=== PATIENT | female | born 1935 | race African-American/Black ===

== ENCOUNTER 2017-08-18 05:32 | Inpatient (IN) | payer BC, OTHER ==
[~2017-08-18] VITALS: Ht 160 cm; Wt 59.9 kg
[2017-08-18 05:52] VITALS: BP 150/70
[2017-08-18 07:30] LABS: BASOPHILS % (AUTO) 1.2 % (0.0-2.0); HEMATOCRIT 40.4 % (37.0-47.0); HEMOGLOBIN 12.7 G/DL (12.0-16.0); LYMPHOCYTES % (AUTO) 8.7 % (20.0-45.0); MEAN CORPUSCULAR VOLUME 85 FL (80-99); MONOCYTES % (AUTO) 11.8 % (1.0-10.0); NEUTROPHILS % (AUTO) 77.2 % (45.0-75.0); PLATELET COUNT 271 K/UL (150-450); RED BLOOD COUNT 4.77 M/UL (4.20-5.40); RED CELL DISTRIBUTION WIDTH 12.8 % (11.6-14.8); WHITE BLOOD COUNT 9.1 K/UL (4.8-10.8)
[2017-08-18 07:53] LABS: ANION GAP 6 mmol/L (5-15); BLOOD UREA NITROGEN 14 mg/dL (7-18); CALCIUM 9.6 MG/DL (8.5-10.1); CARBON DIOXIDE 29 MMOL/L (21-32); CHLORIDE 102 MMOL/L (98-107); CREATININE 1.1 MG/DL (0.55-1.30); POTASSIUM 3.8 MMOL/L (3.5-5.1); SODIUM 137 MMOL/L (136-145)
[2017-08-18 08:08] LABS: ALANINE AMINOTRANSFERASE 10 U/L (12-78); ALBUMIN 3.6 G/DL (3.4-5.0); ALBUMIN/GLOBULIN RATIO 0.8 (1.0-2.7); ALKALINE PHOSPHATASE 69 U/L (46-116); ASPARTATE AMINO TRANSFERASE 16 U/L (15-37); BILIRUBIN,TOTAL 0.7 MG/DL (0.2-1.0); CKMB 0.7 NG/ML (0.0-3.6); CREATINE KINASE 61 U/L (26-308)
[2017-08-18 08:09] VITALS: BP 167/65
--- NOTE | 2017-08-18 08:45 | Emergency Room Report ---
History of Present Illness General Chief Complaint: Upper Extremity Injury Source: Patient Present Illness HPI Patient presents with complaints of left shoulder pain Reports that she woke up this morning with increased discomfort She also pointed to the upper lateral aspect of the chest area Denies any shortness of breath denies any pleurisy denies any abdominal pain Denies any recent trauma Pain is a sharp pain Appears to be fairly well associated with movement or touch denies any neck pain Denies any other peripheral weakness or neuropathy Allergies: Coded Allergies: No Known Allergies (Unverified , 08/18/17) Patient History Past Medical History: see triage record Pertinent Family History: none Last Menstrual Period: NA Now: No Reviewed Nursing Documentation: PMH: Agreed, PSxH: Agreed Nursing Documentation-PMH Past Medical History: No Stated History Review of Systems All Other Systems: negative except mentioned in HPI Physical Exam Vital Signs Date Time Temp Pulse Resp B/P (MAP) Pulse Ox O2 Delivery O2 Flow Rate FiO2 08/18/17 05:40 98.1 85 18 150/70 98 Room Air Sp02 EP Interpretation: reviewed, normal General Appearance: well appearing, no apparent distress Head: normocephalic, atraumatic Eyes: bilateral eye PERRL, bilateral eye EOMI ENT: hearing grossly normal, normal pharynx, TMs + canals normal, uvula midline Neck: full range of motion, supple, no meningismus, no bony tend Respiratory: lungs clear, normal breath sounds, no rhonchi, no respiratory distress, no retraction, no accessory muscle use Cardiovascular #1: normal peripheral pulses, regular rate, rhythm, no edema, no gallop, no JVD, no murmur Gastrointestinal: normal bowel sounds, non tender, soft, no mass, no organomegaly, non-distended, no guarding, no hernia, no pulsatile mass, no rebound Genitourinary: no CVA tenderness Musculoskeletal: other - Patient does have significant discomfort on the left shoulder with attempts of flexion of the shoulder or abduction of the upper arm , neurovascularly otherwise intact no signs of swelling Neurologic: oriented x3, responsive, 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, sensory intact Psychiatric: mood/affect normal Skin: normal color, no rash, warm/dry, palpation normal Lymphatic: normal inspection, no adenopathy Medical Decision Making Diagnostic Impression: Primary Impression: ACS (acute coronary syndrome) Additional Impression: Shoulder pain ER Course Patient is a fairly complex patient with multiple differential to consideration including but not limited to cardiac cardiopulmonary and vascular emergencies There is a component of orthopedic pathology as well EKG was done Given the abnormal appearance of the EKG lack of any previous to compare to ACS equivalent is considered Patient's baseline blood work are normal Initial imaging does not show acute pathology However further investigation with cardiac/orthopedic differentials it to be considered the patient requested for admission Labs Test 08/18/17 07:10 White Blood Count 9.1 K/UL (4.8-10.8) Red Blood Count 4.77 M/UL (4.20-5.40) Hemoglobin 12.7 G/DL (12.0-16.0) Hematocrit 40.4 % (37.0-47.0) Mean Corpuscular Volume 85 FL (80-99) Mean Corpuscular Hemoglobin 26.7 PG (27.0-31.0) Mean Corpuscular Hemoglobin Concent 31.5 G/DL (32.0-36.0) Red Cell Distribution Width 12.8 % (11.6-14.8) Platelet Count 271 K/UL (150-450) Mean Platelet Volume 7.4 FL (6.5-10.1) Neutrophils (%) (Auto) 77.2 % (45.0-75.0) Lymphocytes (%) (Auto) 8.7 % (20.0-45.0) Monocytes (%) (Auto) 11.8 % (1.0-10.0) Eosinophils (%) (Auto) 1.0 % (0.0-3.0) Basophils (%) (Auto) 1.2 % (0.0-2.0) Sodium Level 137 MMOL/L (136-145) Potassium Level 3.8 MMOL/L (3.5-5.1) Chloride Level 102 MMOL/L (98-107) Carbon Dioxide Level 29 MMOL/L (21-32) Anion Gap 6 mmol/L (5-15) Blood Urea Nitrogen 14 mg/dL (7-18) Creatinine 1.1 MG/DL (0.55-1.30) Estimat Glomerular Filtration Rate mL/min (>60) Glucose Level 123 MG/DL (74-106) Calcium Level 9.6 MG/DL (8.5-10.1) Total Bilirubin 0.7 MG/DL (0.2-1.0) Aspartate Amino Transf (AST/SGOT) 16 U/L (15-37) Alanine Aminotransferase (ALT/SGPT) 10 U/L (12-78) Alkaline Phosphatase 69 U/L (46-116) Total Creatine Kinase 61 U/L (26-308) Creatine Kinase MB 0.7 NG/ML (0.0-3.6) Creatine Kinase MB Relative Index 1.1 Troponin I 0.000 ng/mL (0.000-0.056) Pro-B-Type Natriuretic Peptide 235 pg/mL (0-125) Total Protein 8.4 G/DL (6.4-8.2) Albumin 3.6 G/DL (3.4-5.0) Globulin 4.8 g/dL Albumin/Globulin Ratio 0.8 (1.0-2.7) Lipase 191 U/L (73-393) EKG Diagnostic Results Rate: normal Rhythm: NSR ST Segments: other - Nonspecific ST, T wave changes Rhythm Strip Diag. Results EP Interpretation: yes Rate: 78 Rhythm: NSR, no PVC's, no ectopy Chest X-Ray Diagnostic Results Chest X-Ray Diagnostic Results : Chest X-Ray Ordered: Yes # of Views/Limited/Complete: 1 View Indication: Chest Pain EP Interpretation: Yes Interpretation: no consolidation, no effusion, no pneumothorax Impression: No acute disease Other X-Ray Diagnostic Results Other X-Ray Diagnostic Results : X-Ray ordered: left shoulder # of Views/Limited Vs Complete: 3 View Indication: Pain EP Interpretation: Yes Interpretation: no dislocation, no soft tissue swelling, no fractures, other - Questionable calcification of the tendon Impression: No acute disease Electronically Signed by: Dex Horowitz DO Last Vital Signs Date Time Temp Pulse Resp B/P (MAP) Pulse Ox O2 Delivery O2 Flow Rate FiO2 08/18/17 08:09 98.0 68 16 167/65 97 Room Air Status: improved Disposition: ADMITTED INPATIENT Condition: Serious Referrals: [facility],REFERRING (PCP) DEX HOROWITZ D.O. Aug 18, 2017 08:45
[2017-08-18] MEDS ORDERED: Enalaprilat 2.5mg/2ml Inj IV PRN (10:00)
[2017-08-18] MEDS ORDERED: Nitroglycerin Subl 0.4mg tab SL PRN (10:00)
[2017-08-18] MEDS ORDERED: Miralax 17gm pkt ORAL PRN (10:00)
[2017-08-18] MEDS ORDERED: Albuterol/Ipratropium 3ml neb HHN PRN (10:00)
[2017-08-18] MEDS ORDERED: dilTIAZem HCl 25mg/5ml Inj IV PRN (10:00)
[2017-08-18] MEDS ORDERED: Ketorolac 30mg Inj IV PRN (10:00)
[2017-08-18 10:42] VITALS: BP 162/63
[2017-08-18 12:30] VITALS: BP 152/85
--- NOTE | 2017-08-18 12:41 | Diagnostic Imaging Report ---
Indication: Reason For Exam: SOB Technique: One view of the chest Comparison: none Findings: Patient is rotated to the left. Lungs and pleural spaces are clear. Heart size is normal Impression: No acute process
--- NOTE | 2017-08-18 12:42 | Diagnostic Imaging Report ---
Indication: Reason For Exam: PAIN Technique: 3 views of the left shoulder Comparison: none Findings: Calcific tendinosis changes of the rotator cuff are noted. No acute fractures. No dislocations. Bones are somewhat osteoporotic. 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
--- NOTE | 2017-08-18 15:06 | Cardiology Progress Note ---
Assessment/Plan Assessment/Plan shoudler pain abn ekg no sx to suggest acs i am unble to locate ekg to reviwe will reorder if trop and echo are neg probably not need [facility] at this time [id number] Objective Last 24 Hour Vital Signs Date Time Temp Pulse Resp B/P (MAP) Pulse Ox O2 Delivery O2 Flow Rate FiO2 08/18/17 12:30 98.1 67 18 152/85 100 Room Air 08/18/17 10:42 66 19 162/63 100 08/18/17 10:42 97.3 66 19 162/63 100 Room Air 08/18/17 08:09 98.0 68 16 167/65 97 Room Air 08/18/17 07:59 98.0 08/18/17 05:52 98.1 85 18 150/70 98 Room Air 08/18/17 05:40 98.1 85 18 150/70 98 Room Air Laboratory Tests Test 08/18/17 07:10 White Blood Count 9.1 K/UL (4.8-10.8) Red Blood Count 4.77 M/UL (4.20-5.40) Hemoglobin 12.7 G/DL (12.0-16.0) Hematocrit 40.4 % (37.0-47.0) Mean Corpuscular Volume 85 FL (80-99) Mean Corpuscular Hemoglobin 26.7 PG (27.0-31.0) L Mean Corpuscular Hemoglobin Concent 31.5 G/DL (32.0-36.0) L Red Cell Distribution Width 12.8 % (11.6-14.8) Platelet Count 271 K/UL (150-450) Mean Platelet Volume 7.4 FL (6.5-10.1) Neutrophils (%) (Auto) 77.2 % (45.0-75.0) H Lymphocytes (%) (Auto) 8.7 % (20.0-45.0) L Monocytes (%) (Auto) 11.8 % (1.0-10.0) H Eosinophils (%) (Auto) 1.0 % (0.0-3.0) Basophils (%) (Auto) 1.2 % (0.0-2.0) Sodium Level 137 MMOL/L (136-145) Potassium Level 3.8 MMOL/L (3.5-5.1) Chloride Level 102 MMOL/L (98-107) Carbon Dioxide Level 29 MMOL/L (21-32) Anion Gap 6 mmol/L (5-15) Blood Urea Nitrogen 14 mg/dL (7-18) Creatinine 1.1 MG/DL (0.55-1.30) Estimat Glomerular Filtration Rate mL/min (>60) Glucose Level 123 MG/DL (74-106) H Calcium Level 9.6 MG/DL (8.5-10.1) Total Bilirubin 0.7 MG/DL (0.2-1.0) Aspartate Amino Transf (AST/SGOT) 16 U/L (15-37) Alanine Aminotransferase (ALT/SGPT) 10 U/L (12-78) L Alkaline Phosphatase 69 U/L (46-116) Total Creatine Kinase 61 U/L (26-308) Creatine Kinase MB 0.7 NG/ML (0.0-3.6) Creatine Kinase MB Relative Index 1.1 Troponin I 0.000 ng/mL (0.000-0.056) Pro-B-Type Natriuretic Peptide 235 pg/mL (0-125) H Total Protein 8.4 G/DL (6.4-8.2) H Albumin 3.6 G/DL (3.4-5.0) Globulin 4.8 g/dL Albumin/Globulin Ratio 0.8 (1.0-2.7) L Lipase 191 U/L (73-393) ESTHELA VELASQUEZ Aug 18, 2017 15:06
[2017-08-18 16:00] VITALS: BP 151/68
--- NOTE | 2017-08-18 16:23 | Cardiology Report ---
APPROVED REPORT EXAM: Two-dimensional and M-mode echocardiogram with Doppler and color Doppler. INDICATION LV function M-Mode DIMENSIONS IVSd0.9 (0.7-1.1cm)Left Atrium (MM)3.7 (1.6-4.0cm) LVDd5.0 (3.5-5.6cm)Aortic Root2.9 (2.0-3.7cm) PWd1.1 (0.7-1.1cm)Aortic Cusp Exc.2.0 (1.5-2.0cm) LVDs3.8 (2.5-4.0cm) PWs1.6 cm Normal left ventricular chamber size. Mild global left ventricular hypokinesis. Left ventricular ejection fraction estimated to be 50 %. No evidence of left ventricular hypertrophy. No evidence of pericardial effusion. All other cardiac chamber sizes are within normal limits. Focal aortic valve sclerosis with adequate cusp excursion. Thickened mitral valve leaflets with normal excursion. Mitral annulus and aortic root calcification. Normal pulmonic valve structure. Normal tricuspid valve structure. IVC at normal size with physiologic collapse. A color flow and spectral Doppler study was performed and revealed: Mild aortic regurgitation. Mild mitral regurgitation. Mitral diastolic velocities suggest reduced left ventricular relaxation c/w mild LV diastolic dysfunction (Grade I ). Mild tricuspid regurgitation. Tricuspid systolic velocities suggests peak right ventricular systolic pressure of 43 mmHg, consistent with mild pulmonary hypertension. Moderate pulmonic regurgitation present.
[2017-08-18] MEDS: Morphine Sulfate 2mg/ml Inj IVP PRN (19:52)
[2017-08-18] MEDS: Heparin 5000 units/ml inj SUBQ SCH (21:43)
--- NOTE | 2017-08-18 22:45 | Consultation ---
DATE OF CONSULTATION: 08/18/2017 CARDIOLOGY CONSULTATION CONSULTING PHYSICIAN: Alfonso Espinosa M.D. REFERRING PHYSICIAN: Jovita Parry M.D. REASON FOR REFERRAL: Left shoulder pain, concern of possibility of coronary syndrome. HISTORY OF PRESENT ILLNESS: This is an elderly female, who over the past few days had a sensation of being cold and started having some pain in the left shoulder and is now unable to move the arm because of the pain with passive or active range of motion. having chest pain, pressure, tightness, or heaviness. No PND. No orthopnea. No palpitation. No dizziness or lightheadedness. PAST MEDICAL HISTORY: Fairly unremarkable. SOCIAL HISTORY: She does not smoke. Does drink some wine occasionally. No alcohol. No drugs. 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 REVIEW OF SYSTEMS: GASTROINTESTINAL: She denies. GENITOURINARY: She denies. PULMONARY: Negative. CONSTITUTIONAL: Negative. NEUROLOGIC: Negative. PHYSICAL EXAMINATION: GENERAL: Shows to be elderly female, in no respiratory distress. NECK: Supple. No jugular venous distention. No abdominojugular reflux noted. LUNGS: Clear to auscultation and percussion. CARDIAC: S1 is normal. S2 is normal. Regular rate and rhythm. No heaves, thrills, gallops, or rubs are noted. ABDOMEN: Soft and nontender. Positive bowel sounds. EXTREMITIES: There is no clubbing, cyanosis, or edema. NEUROLOGICAL: She is awake, alert, responsive, and in no respiratory distress. Her right arm, she is able to move around in a lower position with any passive range of motion. She has significant pain in the left shoulder and left forearm. LABORATORY DATA: White count 9, hemoglobin 12.7, and platelet count of 271,000. Sodium is 137, potassium 3.8, chloride 102, bicarb 29, BUN 14, creatinine 1.1, and glucose of 123. Troponin was negative. ProBNP of 235. Total protein 8.4. Albumin of 3.6. Lipase of 191. Her telemetry data shows normal sinus rhythm. Her EKG, unfortunately, I am unable to locate to review. It reportedly showed significant abnormalities and unfortunately I am unable to locate that report to review personally anywhere in the chart. ASSESSMENT: 1. Left shoulder and left forearm pain. 2. Abnormal electrocardiogram. PLAN: Dr. Parry, this patient was seen in cardiac consultation. The patient has significant pain on passive range of motion in the shoulder of the left arm indicating that the pain that she is experiencing is likely musculoskeletal in origin. She reportedly had an electrocardiogram that is abnormal, although I am unable to locate this study, which I will appreciate with ordering. Chest x-ray in the chart shows no acute processes and shoulder x-ray that shows no evidence of bony trauma. There is evidence of chronic rotator cuff calcific tendonitis. I would recommend repeating EKG and cardiac enzymes. I doubt that this is an acute coronary syndrome and if those studies are negative, I think she can probably go home and follow up with her primary care doctor unless an orthopedist needs to provide care for evaluation of her present shoulder pain. Thank you for allowing me to participate in the care of this patient. Alfonso Espinosa M.D. DR: SALLY JOB#: [id number] CC:
[2017-08-19] VITALS: BP 149/59
[2017-08-19 04:00] VITALS: BP 115/61
[2017-08-19] MEDS: Morphine Sulfate 2mg/ml Inj IVP PRN (04:05)
[2017-08-19] MEDS: Heparin 5000 units/ml inj SUBQ SCH (08:59)
[2017-08-19 09:00] VITALS: BP 155/67
[2017-08-19] MEDS ORDERED: Aspirin Baby 81mg ORAL SCH (09:00)
[2017-08-19 09:37] LABS: EOSINOPHILS % (AUTO) 1.3 % (0.0-3.0); HEMATOCRIT 39.8 % (37.0-47.0); HEMOGLOBIN 12.3 G/DL (12.0-16.0); LYMPHOCYTES % (AUTO) 12.6 % (20.0-45.0); MEAN CORPUSCULAR VOLUME 85 FL (80-99); MONOCYTES % (AUTO) 10.5 % (1.0-10.0); NEUTROPHILS % (AUTO) 73.6 % (45.0-75.0); PLATELET COUNT 265 K/UL (150-450); RED BLOOD COUNT 4.69 M/UL (4.20-5.40); RED CELL DISTRIBUTION WIDTH 12.8 % (11.6-14.8); WHITE BLOOD COUNT 7.6 K/UL (4.8-10.8)
[2017-08-19 10:22] LABS: CHOLESTEROL 239 MG/DL (< 200); HDL CHOLESTEROL 61 MG/DL (40-60); TRIGLYCERIDES 50 MG/DL (30-150)
[2017-08-19 12:00] VITALS: BP 143/60
--- NOTE | 2017-08-19 12:57 | History and Physical ---
History of Present Illness General Date patient seen: Aug 19, 2017 Reason for Hospitalization: Upper Extremity Injury Present Illness HPI 81 year old female without major PMHx presented to ER by paramedics with complaints of left shoulder pain and upper lateral aspect of the chest area. She had an abnormal EKG and refused to be transferred to a contracted facility. she is admitted to telemetry for further work up. Allergies: Coded Allergies: No Known Allergies (Unverified , 08/18/17) Patient History Healthcare decision maker Resuscitation status Full Code Advanced Directive on File No Past Medical/Surgical History Past Medical/Surgical History: (1) No significant medical problems Review of Systems All Other Systems: negative except mentioned in HPI Physical Exam General Appearance: WD/WN Lines, tubes and drains: peripheral HEENT: normocephalic, atraumatic Neck: non-tender, normal alignment Respiratory/Chest: chest wall non-tender, lungs clear Breasts: no masses Cardiovascular/Chest: normal peripheral pulses Abdomen: normal bowel sounds, non tender Genitourinary/Rectal: normal genital exam Extremities: normal range of motion Last 24 Hour Vital Signs Date Time Temp Pulse Resp B/P (MAP) Pulse Ox O2 Delivery O2 Flow Rate FiO2 08/19/17 12:00 97.2 67 18 143/60 97 Room Air 08/19/17 09:00 97.0 90 18 155/67 98 Room Air 08/19/17 08:18 75 18 Room Air 21 08/19/17 08:00 71 08/19/17 04:24 72 08/19/17 04:00 98.1 20 115/61 98 Room Air 08/19/17 00:00 97.7 20 149/59 97 Room Air 08/18/17 20:52 72 08/18/17 16:00 76 08/18/17 16:00 98.2 72 18 151/68 100 Room Air Intake and Output 08/18/17 08/19/17 19:00 07:00 Intake Total 150 ml 240 ml Balance 150 ml 240 ml Intake Oral 150 ml 240 ml # Voids 2 Laboratory Tests Test 08/19/17 09:00 White Blood Count 7.6 K/UL (4.8-10.8) Red Blood Count 4.69 M/UL (4.20-5.40) Hemoglobin 12.3 G/DL (12.0-16.0) Hematocrit 39.8 % (37.0-47.0) Mean Corpuscular Volume 85 FL (80-99) Mean Corpuscular Hemoglobin 26.3 PG (27.0-31.0) L Mean Corpuscular Hemoglobin Concent 31.0 G/DL (32.0-36.0) L Red Cell Distribution Width 12.8 % (11.6-14.8) Platelet Count 265 K/UL (150-450) Mean Platelet Volume 7.7 FL (6.5-10.1) Neutrophils (%) (Auto) 73.6 % (45.0-75.0) Lymphocytes (%) (Auto) 12.6 % (20.0-45.0) L Monocytes (%) (Auto) 10.5 % (1.0-10.0) H Eosinophils (%) (Auto) 1.3 % (0.0-3.0) Basophils (%) (Auto) 2.0 % (0.0-2.0) Prothrombin Time 10.5 SEC (9.30-11.50) Prothromb Time International Ratio 1.0 (0.9-1.1) Activated Partial Thromboplast Time 29 SEC (23-33) Troponin I 0.000 ng/mL (0.000-0.056) C-Reactive Protein, Quantitative 7.9 mg/dL (0.00-0.90) H Triglycerides Level 50 MG/DL (30-150) Cholesterol Level 239 MG/DL (< 200) H LDL Cholesterol 167 mg/dL (<100) H HDL Cholesterol 61 MG/DL (40-60) H Cholesterol/HDL Ratio 3.9 (3.3-4.4) Thyroid Stimulating Hormone (TSH) 1.060 uiU/mL (0.358-3.740) Height (Feet): 5 Height (Inches): 3.00 Weight (Pounds): 132 Medications Current Medications Medications (Trade) Dose Ordered Sig/Migdalia Route PRN Reason Start Time Stop Time Status Last Admin Dose Admin Acetaminophen (Tylenol) 650 mg Q4H PRN ORAL T>100.5 08/18/17 10:00 09/17/17 09:59 Albuterol/ Ipratropium (Albuterol/ Ipratropium) 3 ml Q4H PRN HHN Shortness of Breath 08/18/17 10:00 08/23/17 09:59 Aspirin (ASA) 162 mg DAILY ORAL 08/19/17 09:00 09/18/17 08:59 08/19/17 08:59 Diltiazem HCl (Cardizem) 10 mg EVERY HOUR PRN IV heart rate more than 120 bpm 08/18/17 10:00 09/17/17 09:59 Enalaprilat (Vasotec) 2.5 mg Q6H PRN IV sbp more than 160mmHg 08/18/17 10:00 09/17/17 09:59 Heparin Sodium (Porcine) (Heparin 5000 units/ml) 5,000 units EVERY 12 HOURS SUBQ 08/18/17 21:00 09/17/17 20:59 Morphine Sulfate (Morphine Sulfate) 2 mg Q4H PRN IVP Severe Pain (Pain Scale 7-10) 08/18/17 10:00 08/25/17 09:59 08/19/17 04:05 Nitroglycerin (Ntg) 0.4 mg Q5MIN X 3 DOSES PRN SL Prn Chest Pain 08/18/17 10:00 09/17/17 09:59 Ondansetron HCl (Zofran) 4 mg Q6H PRN IVP Nausea & Vomiting 08/18/17 10:00 09/17/17 09:59 Polyethylene Glycol (Miralax) 17 gm DAILYPRN PRN ORAL Constipation 08/18/17 10:00 09/17/17 09:59 Temazepam (Restoril) 15 mg HSPRN PRN ORAL Insomnia 08/18/17 21:00 08/25/17 20:59 Assessment/Plan Problem List: (1) ACS (acute coronary syndrome) ICD Codes: I24.9 - Acute ischemic heart disease, unspecified SNOMED: 888801220 (2) Shoulder pain ICD Codes: M25.519 - Pain in unspecified shoulder SNOMED: 25906169 Assessment/Plan f/u troponin, ekg, cardio evaluation ortho evaluation pain management psyc and social services manager to see. VERITO AGARWAL Aug 19, 2017 12:57
--- NOTE | 2017-08-20 15:18 | Discharge Summary ---
Discharge Summary Hospital Course Date of Admission Aug 18, 2017 at 09:08 Date of Discharge Aug 19, 2017 at 14:20 Admitting Diagnosis ACUTE CORONARY SYNDROME HPI Jodee Quinteros is a 81 year old female who was admitted on Aug 18, 2017 at 09 :08 for Acute Coronary Syndrome Hospital Course [id number] Discharge Discharge Disposition Patient was discharged to Home (01) Discharge Diagnoses: Jaky Beebe NP Aug 20, 2017 15:18
--- NOTE | 2017-08-20 23:30 | Discharge Summary 2 SIG ---
DATE OF ADMISSION: 08/18/2017 DATE OF DISCHARGE: 08/19/2017 TECHNICAL INSPECTOR: Alfonso Espinosa M.D. BRIEF HOSPITAL COURSE: The patient is an 81-year-old female with fairly unremarkable past medical history, presented to ED complaining of left shoulder pain. On evaluation at ED, she reported that she woke up in the morning with increased discomfort. Denied any shortness of breath, any pleurisy, or abdominal pain. There was no recent trauma. EKG done showed normal sinus rhythm with nonspecific ST to T-wave changes. There was no baseline to compare. Initial troponin was negative. Chest x-ray showed no acute disease, no consolidation, no effusion, no pneumothorax. Shoulder x-ray showed no evidence of dislocation, no fracture, and no soft tissue swelling. There is a questionable calcification on the tendon. She refused to be transferred to a contracted facility. She was then admitted to telemetry for further workup. Cardiac troponins were monitored. She was seen by rn emergency. On evaluation, the patient has significant pain on passive range of motion of the shoulder indicating pain most likely from musculoskeletal in origin. There was evidence of chronic rotator cuff calcific tendinitis, which could cause symptoms. Cardiac enzymes were negative. She was given aspirin and p.r.n. nitroglycerin. She was given morphine sulfate for pain. Due to rapid improvement of symptoms and negative workup, the patient was discharged home and was advised to follow up with PMD. FINAL DIAGNOSES: 1. Chest pain secondary to left shoulder and left forearm pain, most probably secondary to chronic rotator cuff calcific tendinitis. 2. Chest pain, musculoskeletal in origin. DISPOSITION: The patient was discharged home. DISCHARGE MEDICATIONS: Resume medication list. DISCHARGE INSTRUCTIONS: Follow up with PMD in a week. Jovita Parry M.D. I have been assigned to dictate discharge summary on this account and I was not involved in the patient's management. Pérez AhnP. DR: SONIYA JOB#: [id number] CC:
--- NOTE | 2017-08-23 13:24 | Diagnostic Imaging Report ---
Indication: Shoulder pain Technique: MRI of the left shoulder obtained in a 1.5 Marian magnet. Pulse sequences obtained include axial and coronal proton fast spin-echo with fat saturation, sagittal T1 fast spin-echo, sagittal and coronal T2 fast spin-echo with fat saturation. Findings: There is no acute fracture or evidence of osteonecrosis. There is infraspinatus and supraspinatus tendinosis. There is a bursal sided partial-thickness, low-grade tear at the junction of the supraspinatus and infraspinatus tendons. There is a 7 mm low signal intensity focus at the supraspinatus insertion onto the greater tuberosity consistent with calcific tendinitis. Teres minor is intact. There is mild subscapularis tendinosis. There is subacromial and subdeltoid bursitis. There is acromioclavicular arthrosis with capsular hypertrophy and bone marrow edema at the distal clavicle. There is some fluid within the biceps tendon sheath, which may be related to small glenohumeral joint effusion or biceps tenosynovitis. There is diffuse labral degeneration without displaced tear. There is moderate to severe cartilage wear along the glenoid and humeral head. The extrahepatic is mildly hyperintense and thickened, to be correlated with clinical features of adhesive capsulitis. There is scarring at the rotator interval. IMPRESSION: Calcific tendinitis of the supraspinatus tendon with moderate to severe subacromial/subdeltoid bursitis. Glenohumeral osteoarthritis and small joint effusion. Mild thickening and hyperintensity of the axillary pouch, to be correlated with clinical features of adhesive capsulitis.
--- NOTE | 2017-08-26 18:27 | Cardiology Report ---
APPROVED REPORT EKG Measurement Heart [id number] Normal sinus rhythm Voltage criteria for left ventricular hypertrophy Nonspecific T wave abnormality Abnormal ECG
--- NOTE | 2017-08-26 18:43 | Cardiology Report ---
APPROVED REPORT EKG Measurement Heart [id number] [place] [id number] [id number] Normal sinus rhythm Voltage criteria for left ventricular hypertrophy Abnormal ECG
== END 2017-08-19 14:20 | disposition home or self-care (01) | DRG 558 ==
LOC: EMR 05:56 → 2E 09:08 → EDBEDREQ 09:16
DX: M75.32 Calcific tendinitis of left shoulder (principal); R07.89 Other chest pain; R94.31 Abnormal electrocardiogram [ECG] [EKG]
CPT/HCPCS: 36415; 71045; 80053; 80061; 82550; 82553; 83690; 83880; 84443; 84484; 85025; 85610; 85730; 86140; 93005; 93306; 94664; 99285